=== PATIENT | male | born 1955 | race African-American/Black ===

== ENCOUNTER 2019-03-04 12:15 | Emergency (ER) | payer BC ==
[2019-03-04] MEDS ORDERED: Ibuprofen 200 MG TAB ONE (12:47)
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
== END 2019-03-04 14:02 | disposition home or self-care (01) ==
LOC: ERS 12:15
DX: M54.5 Low back pain (principal); M54.2 Cervicalgia; B20 Human immunodeficiency virus [HIV] disease; V49.9XXA Car occupant (driver) (passenger) injured in unspecified traffic accident, initial encounter
CPT/HCPCS: 72040; 72072; 72100

== ENCOUNTER 2019-05-11 13:53 | Outpatient (CLI) | payer BC ==
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
== END 2019-05-11 13:54 | disposition home or self-care (01) ==
LOC: SCSRAD 13:53
PROVIDERS: ATTEND Family Medicine
DX: R05 Cough (principal)
CPT/HCPCS: 71046